=== PATIENT | male | born 2000 | race Caucasian/White ===

== ENCOUNTER 2022-07-14 02:11 | Emergency (ER) | payer SELFPAY ==
[2022-07-14] MEDS ORDERED: Fluorescein 1 MG Ophth Strip EYEBOTH ONE (03:04)
[2022-07-14] MEDS ORDERED: Proparacaine 0.5% Ophth Soln 15 ML Bottle EYEBOTH SCH (03:15)
[2022-07-14] MEDS ORDERED: Erythromycin Base 0.5% Ophth Oint 1 GM Tube EYEBOTH ONE (04:22)
== END 2022-07-14 05:00 | disposition home or self-care (01) ==
LOC: JD.ED 02:11
DX: S05.01XA Injury of conjunctiva and corneal abrasion without foreign body, right eye, initial encounter (principal); S05.02XA Injury of conjunctiva and corneal abrasion without foreign body, left eye, initial encounter; W22.8XXA Striking against or struck by other objects, initial encounter
CPT/HCPCS: 99283; A9270